=== PATIENT | male | born 1955 | race Asian ===

== ENCOUNTER 2016-09-16 20:41 | Emergency (ER) | payer OTHER ==
[2016-09-16 21:19] VITALS: BP 183/98; PULSE 88; TEMP 99
--- NOTE | 2016-09-16 22:13 | PDOC ---
History of Present Illness - General History Source: Patient Exam Limitations: No Limitations - History of Present Illness Initial Comments: 09/16/16 22:41 The patient is a 61 year old male with history of hypertension and ankylosing spondylitis and a pacemaker in place who presents to the ED complaining of bilateral lower extremity edema. Patient states that on 09/09 he was cleaning his backyard as he fell walking up the stairs and scrapped his left knee and right foot. Patient states that he developed redness and swelling to the right leg from the knee to the foot and edema of the LLE. Patient saw his PMD and was prompted to present to the ED to r/o DVT. PSH - bilateral hip replacement, pacemaker, sacral fusion PCP - Dr. Rolando Santana , fax <Gwen Matute - Last Filed: 09/17/16 01:15> <Richa Sousa - Last Filed: 09/17/16 01:37> - General Chief Complaint: Edema Stated Complaint: PCP SENT/BILATERAL SWELLING Time Seen by Provider: 09/16/16 21:49 Past History <Gwen Matute - Last Filed: 09/17/16 01:15> - Past Medical History Cardiac Disorders: Yes HTN: Yes - Surgical History Cardiac Surgery: Yes (PACEMAKER) Orthopedic Surgery: Yes (bilateral hip surgery) - Psycho/Social/Smoking Cessation Hx Anxiety: No Suicidal Ideation: No Smoking History: Former smoker Have you smoked in the past 12 months: No Number of Cigarettes Smoked Daily: 0 Information on smoking cessation initiated: No Hx Alcohol Use: No Drug/Substance Use Hx: No Substance Use Type: None Hx Substance Use Treatment: No <Richa Sousa - Last Filed: 09/17/16 01:37> - Past Medical History Allergies/Adverse Reactions: Allergies Allergy/AdvReac Type Severity Reaction Status Date / Time isoniazid Allergy Verified 09/16/16 21:19 rifampin Allergy Verified 09/16/16 21:19 Home Medications: Ambulatory Orders Amlodipine Besylate [Norvasc -] 10 mg PO DAILY 04/23/15 Ubidecarenone [Co Q-10] 10 mg PO DAILY 04/23/15 Amlodipine Besylate [Norvasc -] 5 mg PO DAILY tablet 04/25/15 Multivit-Min/FA/Lycopen/Lutein [Centrum Silver Men Tablet] 1 each PO DAILY 09/16 Cephalexin Monohydrate [Keflex -] 500 mg PO Q6H #20 capsule 09/17/16 Review of Systems - Review of Systems Able to Perform ROS?: Yes Comments:: 09/16/16 22:41 CONSTITUTIONAL: Absent: fever, chills, diaphoresis, generalized weakness, malaise, loss of appetite HEENT: Absent: rhinorrhea, nasal congestion, throat pain, throat swelling, difficulty swallowing, mouth swelling, ear pain, eye pain, visual Changes CARDIOVASCULAR: Absent: chest pain, syncope, palpitations, irregular heart rate, lightheadedness , peripheral edema RESPIRATORY: Absent: cough, shortness of breath, dyspnea with exertion, orthopnea, wheezing, stridor, hemoptysis GASTROINTESTINAL: Absent: abdominal pain, abdominal distension, nausea, vomiting, diarrhea, constipation, melena, hematochezia GENITOURINARY: Absent: dysuria, frequency, urgency, hesitancy, hematuria, flank pain, genital pain MUSCULOSKELETAL: Present: bilateral LE edema. Absent: myalgia, arthralgia, joint swelling SKIN: Present: right leg erythema Absent: rash, itching HEMATOLOGIC/IMMUNOLOGIC: Absent: easy bleeding, easy bruising, lymphadenopathy, frequent infections ENDOCRINE: Absent: unexplained weight gain, unexplained weight loss, heat intolerance, cold intolerance NEUROLOGIC: Absent: headache, focal weakness or paresthesias, dizziness, unsteady gait, seizure, mental status changes, bladder or bowel incontinence PSYCHIATRIC: Absent: anxiety, depression, suicidal or homicidal ideation, hallucinations. <Gwen Matute - Last Filed: 09/17/16 01:15> *Physical Exam - Vital Signs Last Vital Signs Temp Pulse Resp BP Pulse Ox 99.0 F 88 18 183/98 98 09/16/16 21:15 09/16/16 21:15 09/16/16 21:15 09/16/16 21:15 09/16/16 21:15 - Physical Exam Comments: 09/16/16 22:42 GENERAL: Well developed, well nourished. Awake and alert. No acute distress. HEENT: Normocephalic, atraumatic. PERRLA, EOMI. No conjunctival pallor. Sclera are non- icteric. Moist mucous membranes. Oropharynx is clear. NECK: Supple. Full ROM. No JVD. Carotid pulses 2+ and symmetric, without bruits. No thyromegaly. No lymphadenopathy. CARDIOVASCULAR: Regular rate and rhythm. No murmurs, rubs, or gallops. Distal pulses are 2+ and symmetric. PULMONARY: No evidence of respiratory distress. Lungs clear to auscultation bilaterally. No wheezing, rales or rhonchi. ABDOMINAL: Soft. Non-tender. Non-distended. No rebound or guarding. No organomegaly. Normoactive bowel sounds. MUSCULOSKELETAL Normal range of motion at all joints. No bony deformities or tenderness. No CVA tenderness. EXTREMITIES: +bilateral lower extremity edema. No cyanosis. No clubbing. No calf tenderness. SKIN: +RLE erythematous, hot to touch. Warm and dry. Normal capillary refill. No rashes. No jaundice. NEUROLOGICAL: Alert, awake, appropriate. Cranial nerves 2-12 intact. No deficits to light touch and temperature in face, upper extremities and lower extremities. No motor deficits in the in face, upper extremities and lower extremities. Normoreflexic in the upper and lower extremities. Normal speech. PSYCHIATRIC: Cooperative. Good eye contact. Appropriate mood and affect. <Gwen Matute - Last Filed: 09/17/16 01:15> - Vital Signs Last Vital Signs Temp Pulse Resp BP Pulse Ox 99.0 F 88 18 183/98 98 09/16/16 21:15 09/16/16 21:15 09/16/16 21:15 09/16/16 21:15 09/16/16 21:15 <Richa Sousa - Last Filed: 09/17/16 01:37> ED Treatment Course - LABORATORY CBC & Chemistry Diagram: 09/16/16 22:15 09/16/16 22:15 - RADIOLOGY Radiology Studies Ordered: 09/16/16 23:44 This is a preliminary report by imaging dimensional engineer Exam: Bilateral lower extremity venous duplex Images: 38 Clinical indication: Lower extremity swelling. Findings: The common femoral, proximal greater saphenous femoral, popliteal, [place] posterior tibial veins were examined bilaterally using day scale, color, and Doppler venous imaging. All levels exhibited normal compressibility , color signal, and Doppler venous wave forms. No filling defects were identified. Impression: Bilateral lower extremity venous duplex negative for deep venous thrombosis. THIS DOCUMENT HAS BEEN ELECTRONICALLY SIGNED Joseph Parikh M.D. <Gwen Matute - Last Filed: 09/17/16 01:15> - LABORATORY CBC & Chemistry Diagram: 09/16/16 22:15 09/16/16 22:15 <Richa Sousa - Last Filed: 09/17/16 01:37> *DC/Admit/Observation/Transfer - Attestations Scribe Attestion: 09/16/16 22:44 Documentation prepared by CARLITOS Alcala, acting as medical records field technician for Richa Sousa MD. <Gwen Matute - Last Filed: 09/17/16 01:15> <Richa Sousa - Last Filed: 09/17/16 01:37> Diagnosis at time of Disposition: Leg swelling Leg injury Qualifiers: Encounter type: initial encounter Laterality: right Qualified Code(s): S89.91XA - Unspecified injury of right lower leg, initial encounter - Discharge Dispostion Disposition: HOME Condition at time of disposition: Stable - Prescriptions Prescriptions: Cephalexin Monohydrate [Keflex -] 500 mg PO Q6H #20 capsule - Referrals Referrals: Rolando Santana [Primary Care Provider] - - Patient Instructions Printed Discharge Instructions: DI for Peripheral Edema, Unilateral Additional Instructions: please take the antibiotics as directed Follow up with your regular physician
[2016-09-16 23:07] LABS: BASOPHIL 0.2 % (0-2.0); EOSINOPHIL 0.5 % (0-4.5); MCH 26.4 pg (25.7-33.7); MCHC 32.3 g/dl (32.0-35.9); MEAN CELL VOLUME 81.7 fl (80-96); MEAN PLT VOLUME 7.3 fl (7.5-11.1); PLATELET COUNT 367 K/MM3 (134-434); RDW 16.1 % (11.9-15.9); WHITE BLOOD COUNT 11.8 K/mm3 (4.0-10.0)
[2016-09-16 23:37] LABS: ANION GAP 10 (8-16); CALCIUM 8.3 mg/dL (8.5-10.1); CO2 30 mmol/L (21-32); CREATININE 1.1 mg/dL (0.7-1.3); GLUCOSE,RANDOM 90 mg/dL (74-106); SGOT/AST 17 U/L (15-37); SGPT/ALT 18 U/L (12-78)
[2016-09-16 23:39] LABS: ALK PHOS 95 U/L (45-117); BILIRUBIN,TOTAL 0.7 mg/dL (0.2-1.0); TOT PROT 7.4 g/dl (6.4-8.2)
[2016-09-17] MEDS ORDERED: CEPHALEXIN MONOHYDRATE 500 MG CAPSULE (UD) PO ONE (00:57)
[2016-09-17] MEDS ORDERED: CEPHALEXIN MONOHYDRATE 250 MG CAPSULE (FP) ONE (01:27)
== END 2016-09-17 01:43 | disposition home or self-care (01) ==
LOC: JER 20:41 → SUPCPDRO 20:41 → JER 09-17 01:43
DX: S89.91XA Unspecified injury of right lower leg, initial encounter (principal); I10 Essential (primary) hypertension; M45.9 Ankylosing spondylitis of unspecified sites in spine; W10.8XXA Fall (on) (from) other stairs and steps, initial encounter; Y93.89 Activity, other specified; Y92.098 Other place in other non-institutional residence as the place of occurrence of the external cause
CPT/HCPCS: 36415; 80053; 85025; 93970-TC; 99282-25

== ENCOUNTER 2021-11-26 16:32 | Inpatient (IN) | payer OTHER, MEDICARE ==
[2021-11-26] MEDS ORDERED: LABETALOL HCL 5 MG/1 ML (100MG/20 ML VIAL) IVPUSH ONE ×2 (17:06→17:32)
[2021-11-26] MEDS ORDERED: NICARDIPINE 25 MG in DEXTROSE 5%-WATER - 240 ML IVPB SCH ×2 (18:00→18:45)
[2021-11-26 18:03] LABS: BASO % 0.5 % (0-2.0); EOS % 0.8 % (0-4.5); HEMATOCRIT 40.5 % (35.4-49); HEMOGLOBIN 13.2 GM/dL (11.7-16.9); MCH 27.5 pg (25.7-33.7); MCHC 32.8 g/dl (32.0-35.9); MEAN CELL VOLUME 83.9 fl (80-96); MEAN PLT VOLUME 7.5 fl (7.5-11.1); MONO % 8.3 % (3.8-10.2); NEUT % 74.4 % (42.8-82.8); PLATELET COUNT 301 10^3/uL (134-434); RBC 4.82 M/mm3 (4.00-5.60); RDW 15.1 % (11.9-15.9); WHITE BLOOD COUNT 11.9 K/mm3 (4.0-10.0)
[2021-11-26 18:10] LABS: INR 1.13 (0.83-1.09)
[2021-11-26 18:13] LABS: ACTIVATED PTT 34.4 SECONDS (25.2-36.5)
[2021-11-26 18:27] LABS: CALCIUM 8.4 mg/dL (8.5-10.1)
[2021-11-26 18:28] LABS: ALBUMIN 2.8 g/dl (3.4-5.0)
[2021-11-26 18:30] LABS: CREATININE 0.8 mg/dL (0.55-1.3)
[2021-11-26 18:32] LABS: BILIRUBIN,TOTAL 0.3 mg/dL (0.2-1); TOT PROT 6.9 g/dl (6.4-8.2)
[2021-11-26] MEDS ORDERED: niCARdipine HCL 25 MG/10 ML AMPUL IVPB ONE (19:11)
[2021-11-26 20:39] VITALS: BMI 30.9
[2021-11-26 21:15] LABS: EPI CELLS 2 /uL (0-25.1); HYALINE CASTS 0 /uL (0-3.1); PH,URINE 6.5 (5.0-8.0); URINE APPEARANCE CLEAR; URINE BACTERIA 7 /uL (0-1359); URINE BILIRUBIN NEGATIVE (NEGATIVE); URINE COLOR YELLOW; URINE GLUCOSE (UA) NEGATIVE (NEGATIVE); URINE KETONE NEGATIVE (NEGATIVE); URINE LEUK ESTERASE NEGATIVE (NEGATIVE); URINE NITRITE NEGATIVE (NEGATIVE); URINE PROTEIN 1+ (NEGATIVE); URINE RBC 7 /uL (0-23.9); URINE UROBILINOGEN 0.2 mg/dL (0.2-1.0); URINE WBC 4 /uL (0-25.8)
[2021-11-26] MEDS ORDERED: PNEUMOC 20-VAL CONJ-DIP CRM/PF 0.5 ML SYRINGE IM ONE (22:00)
[2021-11-26] MEDS: MUPIROCIN 2% TOPICAL OINTMENT FOR DECOLONIZATION NS SCH (22:36)
[2021-11-26] MEDS: CHLORHEXIDINE GLUCONATE 4% CLEANSER FOR DECOLONIZATION TP SCH (22:37)
[2021-11-26] MEDS: NICARDIPINE 25 MG in DEXTROSE 5%-WATER - 240 ML IVPB SCH ×2 (23:42)
[2021-11-27] MEDS ORDERED: niCARdipine HCL 25 MG/10 ML AMPUL IVPB ONE ×2 (01:53→07:51)
[2021-11-27] MEDS: NICARDIPINE 25 MG in DEXTROSE 5%-WATER - 240 ML IVPB SCH ×2 (02:00→05:30)
[2021-11-27 08:15] LABS: INR 1.13 (0.83-1.09)
[2021-11-27 08:21] LABS: BASO % 0.5 % (0-2.0); EOS % 0.9 % (0-4.5); HEMATOCRIT 43.4 % (35.4-49); HEMOGLOBIN 14.6 GM/dL (11.7-16.9); LYMPH % 16.1 % (8-40); MCH 28.2 pg (25.7-33.7); MCHC 33.7 g/dl (32.0-35.9); MEAN CELL VOLUME 83.4 fl (80-96); MEAN PLT VOLUME 7.9 fl (7.5-11.1); NEUT % 74.5 % (42.8-82.8); PLATELET COUNT 240 10^3/uL (134-434); RDW 14.7 % (11.9-15.9)
[2021-11-27 08:23] LABS: BLOOD UREA NITROGEN 16.3 mg/dL (7-18); CALCIUM 8.6 mg/dL (8.5-10.1); MAGNESIUM 2.2 mg/dL (1.8-2.4)
[2021-11-27 08:26] LABS: CREATININE 0.7 mg/dL (0.55-1.3); PHOSPHOROUS 2.9 mg/dL (2.5-4.9)
[2021-11-27 08:27] LABS: BILIRUBIN,TOTAL 0.9 mg/dL (0.2-1); TOT PROT 7.8 g/dl (6.4-8.2)
[2021-11-27] MEDS: FAMOTIDINE 20 MG/50 ML IVPB 20 MG/50 ML MG IVPB SCH ×2 (10:14→21:22)
[2021-11-27] MEDS: MUPIROCIN 2% TOPICAL OINTMENT FOR DECOLONIZATION NS SCH ×2 (10:14→21:22)
[2021-11-27] MEDS: LOSARTAN POTASSIUM 50 MG TABLET PO SCH (12:43)
[2021-11-27] MEDS: TORSEMIDE 5 MG TABLET PO SCH (12:43)
[2021-11-27] MEDS: METOPROLOL TARTRATE 25 MG TABLET (FP) PO SCH ×2 (12:43→21:22)
[2021-11-27] MEDS ORDERED: POTASSIUM CHLORIDE TABS 20 MEQ TABLET.ER (FP) PO ONE (13:31)
[2021-11-27] MEDS: TRIAMTERENE AND HCTZ - 37.5 MG/25 MG CAPSULE PO SCH (14:04)
[2021-11-27] MEDS: CHLORHEXIDINE GLUCONATE 4% CLEANSER FOR DECOLONIZATION TP SCH (21:22)
[2021-11-27] MEDS: hydrALAZINE HCL 20 MG/ML VIAL IVPUSH PRN (22:04)
[2021-11-28] MEDS ORDERED: niCARdipine HCL 25 MG/10 ML AMPUL IVPB ONE (00:06)
[2021-11-28] MEDS: NICARDIPINE 25 MG in DEXTROSE 5%-WATER - 240 ML IVPB SCH (00:07)
[2021-11-28] MEDS ORDERED: amLODIPine BESYLATE 10 MG TABLET (FP) PO ONE (00:20)
[2021-11-28] MEDS: hydrALAZINE HCL 20 MG/ML VIAL IVPUSH PRN (06:15)
[2021-11-28 06:48] LABS: BLOOD UREA NITROGEN 17.6 mg/dL (7-18)
[2021-11-28 06:52] LABS: CREATININE 0.9 mg/dL (0.55-1.3)
[2021-11-28 08:24] LABS: BASO % 0.4 % (0-2.0); EOS % 1.1 % (0-4.5); HEMATOCRIT 48.6 % (35.4-49); HEMOGLOBIN 15.9 GM/dL (11.7-16.9); LYMPH % 17.4 % (8-40); MCH 27.5 pg (25.7-33.7); MCHC 32.7 g/dl (32.0-35.9); MEAN CELL VOLUME 84.2 fl (80-96); MEAN PLT VOLUME 7.4 fl (7.5-11.1); MONO % 7.6 % (3.8-10.2); NEUT % 73.5 % (42.8-82.8); PLATELET COUNT 351 10^3/uL (134-434); RBC 5.77 M/mm3 (4.00-5.60); RDW 15.4 % (11.9-15.9)
[2021-11-28] MEDS: FAMOTIDINE 20 MG/50 ML IVPB 20 MG/50 ML MG IVPB SCH ×2 (09:10→21:02)
[2021-11-28] MEDS: LOSARTAN POTASSIUM 50 MG TABLET PO SCH (09:10)
[2021-11-28] MEDS: amLODIPine BESYLATE 10 MG TABLET (FP) PO SCH (09:10)
[2021-11-28] MEDS: TORSEMIDE 5 MG TABLET PO SCH (09:10)
[2021-11-28] MEDS: TRIAMTERENE AND HCTZ - 37.5 MG/25 MG CAPSULE PO SCH (09:10)
[2021-11-28] MEDS: MUPIROCIN 2% TOPICAL OINTMENT FOR DECOLONIZATION NS SCH ×2 (09:11→21:02)
[2021-11-28] MEDS: METOPROLOL TARTRATE 25 MG TABLET (FP) PO SCH ×2 (09:11→21:01)
[2021-11-28] MEDS: CHLORHEXIDINE GLUCONATE 4% CLEANSER FOR DECOLONIZATION TP SCH (21:02)
[2021-11-29] MEDS: MUPIROCIN 2% TOPICAL OINTMENT FOR DECOLONIZATION NS SCH ×2 (10:09→21:20)
[2021-11-29] MEDS: METOPROLOL TARTRATE 25 MG TABLET (FP) PO SCH ×2 (10:10→21:20)
[2021-11-29] MEDS: amLODIPine BESYLATE 10 MG TABLET (FP) PO SCH (10:10)
[2021-11-29] MEDS: LOSARTAN POTASSIUM 50 MG TABLET PO SCH (10:10)
[2021-11-29] MEDS: FAMOTIDINE 20 MG/50 ML IVPB 20 MG/50 ML MG IVPB SCH ×2 (10:10→21:21)
[2021-11-29] MEDS: TORSEMIDE 5 MG TABLET PO SCH ×2 (10:24→11:24)
[2021-11-29] MEDS: TRIAMTERENE AND HCTZ - 37.5 MG/25 MG CAPSULE PO SCH ×2 (10:24→11:24)
[2021-11-29] MEDS ORDERED: LOSARTAN POTASSIUM 50 MG TABLET PO ONE (14:59)
[2021-11-29 17:12] LABS: HEMOGLOBIN 15.5 GM/dL (11.7-16.9); MCH 27.9 pg (25.7-33.7); MEAN CELL VOLUME 84.5 fl (80-96); RBC 5.56 M/mm3 (4.00-5.60); RDW 15.4 % (11.9-15.9); WHITE BLOOD COUNT 14.5 K/mm3 (4.0-10.0)
[2021-11-29 17:36] LABS: CALCIUM 8.8 mg/dL (8.5-10.1)
[2021-11-29 17:37] LABS: ALBUMIN 3.1 g/dl (3.4-5.0); BLOOD UREA NITROGEN 39.6 mg/dL (7-18); MAGNESIUM 2.6 mg/dL (1.8-2.4)
[2021-11-29 17:40] LABS: CREATININE 1.7 mg/dL (0.55-1.3); PHOSPHOROUS 5.1 mg/dL (2.5-4.9)
[2021-11-29 17:41] LABS: BILIRUBIN,TOTAL 0.6 mg/dL (0.2-1)
[2021-11-29] MEDS: CHLORHEXIDINE GLUCONATE 4% CLEANSER FOR DECOLONIZATION TP SCH (21:20)
[2021-11-30 08:22] LABS: HEMATOCRIT 46.3 % (35.4-49); HEMOGLOBIN 15.2 GM/dL (11.7-16.9); MCH 27.4 pg (25.7-33.7); MCHC 32.9 g/dl (32.0-35.9); MEAN CELL VOLUME 83.3 fl (80-96); MEAN PLT VOLUME 7.9 fl (7.5-11.1); PLATELET COUNT 366 10^3/uL (134-434); RBC 5.56 M/mm3 (4.00-5.60); RDW 15.2 % (11.9-15.9); WHITE BLOOD COUNT 11.7 K/mm3 (4.0-10.0)
[2021-11-30 08:42] LABS: CALCIUM 8.6 mg/dL (8.5-10.1)
[2021-11-30 08:43] LABS: BLOOD UREA NITROGEN 37.4 mg/dL (7-18)
[2021-11-30 08:44] LABS: ALBUMIN 2.9 g/dl (3.4-5.0); CREATININE 1.1 mg/dL (0.55-1.3)
[2021-11-30 08:46] LABS: BILIRUBIN,TOTAL 0.8 mg/dL (0.2-1); TOT PROT 7.2 g/dl (6.4-8.2)
[2021-11-30] MEDS: FAMOTIDINE 20 MG/50 ML IVPB 20 MG/50 ML MG IVPB SCH ×2 (10:16→21:50)
[2021-11-30] MEDS: LOSARTAN POTASSIUM 50 MG TABLET PO SCH (10:16)
[2021-11-30] MEDS: TORSEMIDE 5 MG TABLET PO SCH (10:17)
[2021-11-30] MEDS: amLODIPine BESYLATE 10 MG TABLET (FP) PO SCH (10:17)
[2021-11-30] MEDS: METOPROLOL TARTRATE 25 MG TABLET (FP) PO SCH ×2 (10:17→21:48)
[2021-11-30] MEDS: TRIAMTERENE AND HCTZ - 37.5 MG/25 MG CAPSULE PO SCH (10:17)
[2021-11-30 14:56] LABS: MAGNESIUM 2.3 mg/dL (1.8-2.4)
[2021-11-30 15:00] LABS: PHOSPHOROUS 4.1 mg/dL (2.5-4.9)
[2021-12-01 08:12] LABS: HEMATOCRIT 44.4 % (35.4-49); HEMOGLOBIN 15.1 GM/dL (11.7-16.9); MCH 28.5 pg (25.7-33.7); MCHC 34.1 g/dl (32.0-35.9); MEAN CELL VOLUME 83.5 fl (80-96); MEAN PLT VOLUME 7.4 fl (7.5-11.1); PLATELET COUNT 372 10^3/uL (134-434); RBC 5.32 M/mm3 (4.00-5.60); RDW 15.4 % (11.9-15.9); WHITE BLOOD COUNT 13.1 K/mm3 (4.0-10.0)
[2021-12-01 08:30] LABS: CALCIUM 8.6 mg/dL (8.5-10.1)
[2021-12-01 08:31] LABS: ALBUMIN 2.9 g/dl (3.4-5.0); BLOOD UREA NITROGEN 42.5 mg/dL (7-18)
[2021-12-01 08:34] LABS: CREATININE 1.2 mg/dL (0.55-1.3)
[2021-12-01 08:35] LABS: BILIRUBIN,TOTAL 0.6 mg/dL (0.2-1); TOT PROT 7.3 g/dl (6.4-8.2)
[2021-12-01] MEDS: amLODIPine BESYLATE 10 MG TABLET (FP) PO SCH (09:59)
[2021-12-01] MEDS: METOPROLOL TARTRATE 25 MG TABLET (FP) PO SCH ×2 (09:59→21:26)
[2021-12-01] MEDS: LOSARTAN POTASSIUM 50 MG TABLET PO SCH (09:59)
[2021-12-01] MEDS: TORSEMIDE 5 MG TABLET PO SCH (10:00)
[2021-12-01] MEDS: TRIAMTERENE AND HCTZ - 37.5 MG/25 MG CAPSULE PO SCH (10:00)
[2021-12-01] MEDS: FAMOTIDINE 20 MG/50 ML IVPB 20 MG/50 ML MG IVPB SCH ×2 (10:10→21:26)
[2021-12-01 12:23] LABS: MAGNESIUM 2.3 mg/dL (1.8-2.4)
[2021-12-01 12:27] LABS: PHOSPHOROUS 3.9 mg/dL (2.5-4.9)
[2021-12-01 18:58] VITALS: RESP 18
[2021-12-02 08:19] LABS: MCH 27.5 pg (25.7-33.7); MCHC 32.5 g/dl (32.0-35.9); MEAN CELL VOLUME 84.6 fl (80-96); MEAN PLT VOLUME 7.7 fl (7.5-11.1); PLATELET COUNT 383 10^3/uL (134-434); RBC 5.43 M/mm3 (4.00-5.60); RDW 15.1 % (11.9-15.9); WHITE BLOOD COUNT 13.6 K/mm3 (4.0-10.0)
[2021-12-02 08:45] LABS: ALBUMIN 2.9 g/dl (3.4-5.0); BLOOD UREA NITROGEN 49.9 mg/dL (7-18); CALCIUM 8.8 mg/dL (8.5-10.1)
[2021-12-02 08:48] LABS: CREATININE 1.2 mg/dL (0.55-1.3)
[2021-12-02 08:50] LABS: BILIRUBIN,TOTAL 0.4 mg/dL (0.2-1); TOT PROT 7.3 g/dl (6.4-8.2)
[2021-12-02] MEDS: LOSARTAN POTASSIUM 50 MG TABLET PO SCH (10:33)
[2021-12-02] MEDS: METOPROLOL TARTRATE 25 MG TABLET (FP) PO SCH ×2 (10:34→21:14)
[2021-12-02] MEDS: amLODIPine BESYLATE 10 MG TABLET (FP) PO SCH (10:34)
[2021-12-02] MEDS: FAMOTIDINE 20 MG/50 ML IVPB 20 MG/50 ML MG IVPB SCH ×2 (10:34→21:13)
[2021-12-02] MEDS: TORSEMIDE 5 MG TABLET PO SCH (10:35)
[2021-12-02] MEDS: TRIAMTERENE AND HCTZ - 37.5 MG/25 MG CAPSULE PO SCH (10:43)
[2021-12-02 15:56] LABS: MAGNESIUM 2.4 mg/dL (1.8-2.4)
[2021-12-02 15:59] LABS: PHOSPHOROUS 4.4 mg/dL (2.5-4.9)
[2021-12-02 17:40] LABS: URIC ACID 8.9 mg/dL (2.6-7.2)
[2021-12-03 09:01] LABS: HEMATOCRIT 44.7 % (35.4-49); HEMOGLOBIN 14.5 GM/dL (11.7-16.9); MCH 27.5 pg (25.7-33.7); MCHC 32.5 g/dl (32.0-35.9); MEAN CELL VOLUME 84.6 fl (80-96); MEAN PLT VOLUME 7.4 fl (7.5-11.1); PLATELET COUNT 407 10^3/uL (134-434); RBC 5.29 M/mm3 (4.00-5.60)
[2021-12-03 09:18] LABS: CALCIUM 8.6 mg/dL (8.5-10.1)
[2021-12-03 09:19] LABS: ALBUMIN 2.9 g/dl (3.4-5.0); BLOOD UREA NITROGEN 41.4 mg/dL (7-18); MAGNESIUM 2.3 mg/dL (1.8-2.4)
[2021-12-03 09:22] LABS: PHOSPHOROUS 3.4 mg/dL (2.5-4.9)
[2021-12-03 09:23] LABS: BILIRUBIN,TOTAL 0.9 mg/dL (0.2-1)
[2021-12-03 09:24] LABS: TOT PROT 7.3 g/dl (6.4-8.2)
[2021-12-03] MEDS: FAMOTIDINE 20 MG/50 ML IVPB 20 MG/50 ML MG IVPB SCH (10:05)
[2021-12-03] MEDS: amLODIPine BESYLATE 10 MG TABLET (FP) PO SCH (10:05)
[2021-12-03] MEDS: METOPROLOL TARTRATE 25 MG TABLET (FP) PO SCH (10:05)
[2021-12-03] MEDS: LOSARTAN POTASSIUM 50 MG TABLET PO SCH (10:05)
[2021-12-03] MEDS: TORSEMIDE 5 MG TABLET PO SCH (10:06)
[2021-12-03] MEDS: TRIAMTERENE AND HCTZ - 37.5 MG/25 MG CAPSULE PO SCH (10:06)
[2021-12-03] MEDS ORDERED: SODIUM CHLORIDE 1,000 ML IV SCH (11:45)
[2021-12-03 15:26] VITALS: BP 92/64; PULSE 65; TEMP 97.9
== END 2021-12-03 15:55 | disposition short-term general hospital (02) | DRG 64 ==
LOC: JER 16:32 → JERBED 17:37 → JICU 19:49 → J4W 11-29 00:58
PROVIDERS: ADMIT Internal Medicine Pulmonary Disease; ATTEND Internal Medicine
DX: I62.9 Nontraumatic intracranial hemorrhage, unspecified (principal); G93.6 Cerebral edema; I69.354 Hemiplegia and hemiparesis following cerebral infarction affecting left non-dominant side; I10 Essential (primary) hypertension; R29.708 NIHSS score 8; M45.2 Ankylosing spondylitis of cervical region; D72.829 Elevated white blood cell count, unspecified; R47.81 Slurred speech; R51.9 Headache, unspecified; Z95.810 Presence of automatic (implantable) cardiac defibrillator
CPT/HCPCS: 36415; 70450-TC; 80048; 80053; 80061; 81003; 82550; 82962; 83036; 83735; 84100; 84484; 84550; 85025; 85027; 85610; 85730; 86850; 86900; 86901; 90677; 93005; 93010; 94010; 97116-GP; 97162-GP; 99285-25; C9803-CS; U0003; U0005